=== PATIENT | male | born 1965 | race Caucasian/White ===

== ENCOUNTER → 2020-07-23 | Outpatient (CLI) | payer OTHER | LOC: COL.PUL 07:45 | DX: J45.909 Unspecified asthma, uncomplicated (principal) ==

== ENCOUNTER 2021-03-27 05:35 | Emergency (ER) | payer SELFPAY ==
[~2021-03-27] VITALS: Ht 170.2 cm; Wt 72.7 kg
[2021-03-27 05:40] VITALS: TEMP 98.9
[2021-03-27] MEDS ORDERED: NORCO 325 MG-51 TAB PO (06:37)
[2021-03-27 06:52] VITALS: BP 143/102; PULSE 77
== END 2021-03-27 06:53 | disposition home or self-care (01) ==
LOC: COL.ER 05:35
DX: S63.501A Unspecified sprain of right wrist, initial encounter (principal); I10 Essential (primary) hypertension; F17.200 Nicotine dependence, unspecified, uncomplicated; Z87.81 Personal history of (healed) traumatic fracture; W10.8XXA Fall (on) (from) other stairs and steps, initial encounter